=== PATIENT | male | born 1970 | race Caucasian/White ===

== ENCOUNTER 2017-11-04 15:19 | Emergency (ER) | payer BC ==
[2017-11-04 16:31] LABS: BASOPHILS 0.2 % (0-2); EOSINOPHILS 0.2 % (0-7); HEMATOCRIT 47.8 % (42.0-54.0); HEMOGLOBIN 16.3 g/dL (13.5-17.5); IMMATURE GRANULOCYTES 0.2 % (0-5); MCH 29.2 pg (26.0-34.0); MCHC 34.1 g/dL (31.0-37.0); MCV 85.7 fL (80.0-100.0); MEAN PLATELET VOLUME 8.8 fL (7.4-10.4); MONOCYTES 6.8 % (2-11); NEUTROPHILS 77.6 % (40-80); PLATELET COUNT 178 10x3/uL (130-400); RBC 5.58 10x6/uL (4.20-6.10); RDW 13.4 % (11.5-14.5); WBC 12.7 10x3/uL (4.8-10.8)
[2017-11-04 16:46] LABS: ALBUMIN 3.9 g/dL (3.4-5.0); BILIRUBIN - TOTAL 0.97 mg/dL (0.2-1.3); CALCIUM 8.9 mg/dL (8.5-10.1); CARBON DIOXIDE 29.5 mmol/L (21.0-32.0); CREATININE - SERUM 1.2 mg/dL (0.6-1.3); POTASSIUM - SERUM 3.5 mmol/L (3.5-5.1); PROTEIN - SERUM 6.8 g/dL (6.4-8.2)
== END 2017-11-04 18:22 | disposition home or self-care (01) ==
LOC: D.ER 15:19
PROVIDERS: Emergency Medicine
DX: R10.9 Unspecified abdominal pain (principal); R51 Headache; K21.9 Gastro-esophageal reflux disease without esophagitis; I10 Essential (primary) hypertension

== ENCOUNTER 2018-01-20 08:18 | Inpatient (IN) | payer BC ==
[~2018-01-20] VITALS: Ht 182.9 cm; Wt 111.1 kg
[2018-01-20 08:53] LABS: BASOPHILS 0.3 % (0-2); EOSINOPHILS 2.1 % (0-7); HEMATOCRIT 51.6 % (42.0-54.0); HEMOGLOBIN 17.3 g/dL (13.5-17.5); IMMATURE GRANULOCYTES 0.3 % (0-5); LYMPHOCYTES 12.7 % (15-50); MCH 27.6 pg (26.0-34.0); MCHC 33.5 g/dL (31.0-37.0); MCV 82.3 fL (80.0-100.0); MEAN PLATELET VOLUME 8.8 fL (7.4-10.4); MONOCYTES 6.4 % (2-11); NEUTROPHILS 78.2 % (40-80); PLATELET COUNT 191 10x3/uL (130-400); RBC 6.27 10x6/uL (4.20-6.10); RDW 16.2 % (11.5-14.5); WBC 9.9 10x3/uL (4.8-10.8)
[2018-01-20 09:05] LABS: ANION GAP 16.1 mmol/L (8-16); BILIRUBIN - TOTAL 0.7 mg/dL (0.2-1.3); CALCIUM 9.4 mg/dL (8.5-10.1); CARBON DIOXIDE 25.9 mmol/L (21.0-32.0); CREATININE - SERUM 1.5 mg/dL (0.6-1.3); PROTEIN - SERUM 7.8 g/dL (6.4-8.2)
[2018-01-20 10:33] LABS: APPEARANCE CLEAR (CLEAR); BILIRUBIN NEGATIVE (NEGATIVE); COLOR YELLOW (YELLOW); EPITHELIAL CELLS OCC /hpf (0-5); GLUCOSE NEGATIVE (NEGATIVE); KETONE NEGATIVE (NEGATIVE); NITRITE NEGATIVE (NEGATIVE); PROTEIN TRACE mg/dL (NEGATIVE); UROBILINOGEN NORMAL (NORMAL); WHITE CELLS - URINE OCC /hpf (0-5)
[2018-01-20 10:34] LABS: BACTERIA FEW /hpf (NONE SEEN); MUCUS >1+ /lpf (NONE SEEN)
[2018-01-20 10:35] LABS: HYALINE CAST OCC /lpf (NONE SEEN)
[2018-01-20 10:39] LABS: YEAST <1+ /hpf (NONE SEEN)
[2018-01-20] MEDS ORDERED: ZESTRIL40 MG PO (18:26)
[2018-01-20 20:00] VITALS: BP 156/87
[2018-01-21] VITALS (7 sets, daily range): BP systolic 126–167; BP diastolic 67–96; Ht 182.9 cm; Wt 111.1 kg
[2018-01-21 06:15] LABS: BASOPHILS 0.1 % (0-2); EOSINOPHILS 0.3 % (0-7); HEMATOCRIT 51.4 % (42.0-54.0); IMMATURE GRANULOCYTES 0.2 % (0-5); LYMPHOCYTES 4.4 % (15-50); MCH 27.6 pg (26.0-34.0); MCHC 33.1 g/dL (31.0-37.0); MCV 83.3 fL (80.0-100.0); MEAN PLATELET VOLUME 8.9 fL (7.4-10.4); MONOCYTES 5.7 % (2-11); NEUTROPHILS 89.3 % (40-80); PLATELET COUNT 166 10x3/uL (130-400); RBC 6.17 10x6/uL (4.20-6.10); RDW 16.8 % (11.5-14.5)
[2018-01-21 06:16] LABS: WBC 13.7 10x3/uL (4.8-10.8)
[2018-01-21 06:26] LABS: ALBUMIN 3.3 g/dL (3.4-5.0); ANION GAP 14.9 mmol/L (8-16); BILIRUBIN - TOTAL 1.5 mg/dL (0.2-1.3); CALCIUM 8.9 mg/dL (8.5-10.1); CARBON DIOXIDE 23.7 mmol/L (21.0-32.0); CREATININE - SERUM 1.3 mg/dL (0.6-1.3); POTASSIUM - SERUM 4.6 mmol/L (3.5-5.1); PROTEIN - SERUM 7.1 g/dL (6.4-8.2)
[2018-01-22] VITALS (7 sets, daily range): BP systolic 112–143; BP diastolic 55–98
[2018-01-22 06:30] LABS: BASOPHILS 0.1 % (0-2); EOSINOPHILS 1.3 % (0-7); HEMATOCRIT 43.5 % (42.0-54.0); HEMOGLOBIN 14.4 g/dL (13.5-17.5); IMMATURE GRANULOCYTES 0.3 % (0-5); LYMPHOCYTES 4.8 % (15-50); MCH 27.7 pg (26.0-34.0); MCHC 33.1 g/dL (31.0-37.0); MCV 83.8 fL (80.0-100.0); MEAN PLATELET VOLUME 8.8 fL (7.4-10.4); MONOCYTES 6.3 % (2-11); NEUTROPHILS 87.2 % (40-80); RBC 5.19 10x6/uL (4.20-6.10); RDW 17.1 % (11.5-14.5); WBC 12.8 10x3/uL (4.8-10.8)
[2018-01-22 06:32] LABS: PLATELET COUNT 128 10x3/uL (130-400)
[2018-01-22 06:45] LABS: ALBUMIN 2.7 g/dL (3.4-5.0); BILIRUBIN - TOTAL 2.11 mg/dL (0.2-1.3); CALCIUM 8.2 mg/dL (8.5-10.1); CREATININE - SERUM 1.2 mg/dL (0.6-1.3); POTASSIUM - SERUM 4.1 mmol/L (3.5-5.1); PROTEIN - SERUM 6.4 g/dL (6.4-8.2)
[2018-01-22 07:35] LABS: CARBON DIOXIDE 30.1 mmol/L (21.0-32.0)
[2018-01-23 04:00] VITALS: BP 120/61
[2018-01-23 05:18] LABS: BASOPHILS 0.1 % (0-2); HEMATOCRIT 39.8 % (42.0-54.0); IMMATURE GRANULOCYTES 0.3 % (0-5); LYMPHOCYTES 4.5 % (15-50); MCH 27.4 pg (26.0-34.0); MCHC 32.7 g/dL (31.0-37.0); MCV 83.8 fL (80.0-100.0); MEAN PLATELET VOLUME 8.9 fL (7.4-10.4); MONOCYTES 8.1 % (2-11); PLATELET COUNT 145 10x3/uL (130-400); RBC 4.75 10x6/uL (4.20-6.10); WBC 11.1 10x3/uL (4.8-10.8)
[2018-01-23 05:48] LABS: ALBUMIN 2.3 g/dL (3.4-5.0); ALKALINE PHOSPHATASE 62 U/L (46-116); ALT (SGPT) 26 U/L (10-68); BILIRUBIN - TOTAL 1.13 mg/dL (0.2-1.3); CALC OSMOLALITY 262 mosm/kg (275-300); CALCIUM 7.8 mg/dL (8.5-10.1); CARBON DIOXIDE 27.7 mmol/L (21.0-32.0); CHLORIDE - SERUM 97 mmol/L (98-107); CREATININE - SERUM 1.1 mg/dL (0.6-1.3); GLUCOSE 81 mg/dL (74-106); LIPASE 987 U/L (73-393); POTASSIUM - SERUM 3.8 mmol/L (3.5-5.1); SODIUM 132 mmol/L (136-145); UREA NITROGEN 10 mg/dL (7-18); eGFR NON AFRICAN AMERICAN 75 mL/min (90-120)
[2018-01-23 05:54] LABS: AMYLASE - SERUM 166 U/L (25-115)
[2018-01-23 09:07] VITALS: BP 140/78
[2018-01-23 12:36] VITALS: BP 140/83
[2018-01-23 16:27] VITALS: BP 129/85
[2018-01-23 21:47] VITALS: BP 128/73
[2018-01-24 02:19] VITALS: BP 134/81
[2018-01-24 04:54] LABS: BASOPHILS 0.2 % (0-2); HEMATOCRIT 36.9 % (42.0-54.0); HEMOGLOBIN 12.3 g/dL (13.5-17.5); IMMATURE GRANULOCYTES 0.2 % (0-5); LYMPHOCYTES 7.4 % (15-50); MCH 27.8 pg (26.0-34.0); MCHC 33.3 g/dL (31.0-37.0); MCV 83.3 fL (80.0-100.0); MEAN PLATELET VOLUME 8.9 fL (7.4-10.4); MONOCYTES 10.6 % (2-11); NEUTROPHILS 76.6 % (40-80); PLATELET COUNT 153 10x3/uL (130-400); RBC 4.43 10x6/uL (4.20-6.10); RDW 16.8 % (11.5-14.5); WBC 10.7 10x3/uL (4.8-10.8)
[2018-01-24 05:20] LABS: ALBUMIN 2.2 g/dL (3.4-5.0); ALKALINE PHOSPHATASE 89 U/L (46-116); ALT (SGPT) 24 U/L (10-68); CALC OSMOLALITY 265 mosm/kg (275-300); CALCIUM 8.1 mg/dL (8.5-10.1); CARBON DIOXIDE 29.3 mmol/L (21.0-32.0); CHLORIDE - SERUM 98 mmol/L (98-107); CREATININE - SERUM 1.1 mg/dL (0.6-1.3); GLUCOSE 85 mg/dL (74-106); LIPASE 713 U/L (73-393); POTASSIUM - SERUM 3.6 mmol/L (3.5-5.1); PROTEIN - SERUM 5.9 g/dL (6.4-8.2); SODIUM 134 mmol/L (136-145); UREA NITROGEN 11 mg/dL (7-18); eGFR NON AFRICAN AMERICAN 75 mL/min (90-120)
[2018-01-24 05:23] LABS: AMYLASE - SERUM 101 U/L (25-115)
[2018-01-24 06:04] VITALS: BP 117/75
[2018-01-24 07:05] VITALS: BP 142/95
[2018-01-24 11:02] VITALS: BP 150/88
[2018-01-24 15:00] VITALS: BP 127/80
[2018-01-24 20:00] VITALS: BP 140/97
[2018-01-25 00:46] VITALS: BP 145/90
[2018-01-25 05:19] VITALS: BP 119/89
[2018-01-25 05:37] LABS: BASOPHILS 0.2 % (0-2); EOSINOPHILS 6.1 % (0-7); IMMATURE GRANULOCYTES 0.3 % (0-5); LYMPHOCYTES 8.6 % (15-50); MCH 26.9 pg (26.0-34.0); MCHC 32.4 g/dL (31.0-37.0); MEAN PLATELET VOLUME 8.9 fL (7.4-10.4); MONOCYTES 10.5 % (2-11); NEUTROPHILS 74.3 % (40-80); RBC 4.46 10x6/uL (4.20-6.10); RDW 16.9 % (11.5-14.5); WBC 10.3 10x3/uL (4.8-10.8)
[2018-01-25 05:44] LABS: PLATELET COUNT 186 10x3/uL (130-400)
[2018-01-25 05:49] LABS: ALBUMIN 2.2 g/dL (3.4-5.0); ALKALINE PHOSPHATASE 87 U/L (46-116); ALT (SGPT) 23 U/L (10-68); AMYLASE - SERUM 90 U/L (25-115); CALC OSMOLALITY 277 mosm/kg (275-300); CALCIUM 7.9 mg/dL (8.5-10.1); CARBON DIOXIDE 30.1 mmol/L (21.0-32.0); CHLORIDE - SERUM 101 mmol/L (98-107); GLUCOSE 91 mg/dL (74-106); LIPASE 573 U/L (73-393); POTASSIUM - SERUM 3.7 mmol/L (3.5-5.1); PROTEIN - SERUM 5.2 g/dL (6.4-8.2); SODIUM 140 mmol/L (136-145); UREA NITROGEN 11 mg/dL (7-18); eGFR NON AFRICAN AMERICAN 84 mL/min (90-120)
[2018-01-25 08:07] VITALS: BP 146/65
[2018-01-25 11:57] VITALS: BP 136/72
[2018-01-25] MEDS ORDERED: COLACE100 MG PO (12:21)
[2018-01-25] MEDS ORDERED: VITAMIN B-1100 M1 PO (12:21)
[2018-01-25] MEDS ORDERED: FOLIC ACID1 MG PO (12:22)
[2018-01-25] MEDS ORDERED: PERCOCET 10/3251 TA1 PO (12:25)
[2018-01-25] MEDS ORDERED: Pancrease 5000,17,00 PO (12:25)
[2018-01-25] MEDS ORDERED: FLAGYL500 MG PO (13:15)
[2018-01-25] MEDS ORDERED: LEVAQUIN750 MG PO (13:15)
[2018-01-25] MEDS ORDERED: ATIVAN0.5 MG PO (13:15)
== END 2018-01-25 14:15 | disposition home or self-care (01) | DRG 439 ==
LOC: D.ER 08:18 → D.EDHOLD 14:27 → D.MS 14:27
PROVIDERS: Family Medicine; Family Medicine Adult Medicine
DX: K85.20 Alcohol induced acute pancreatitis without necrosis or infection (principal); N17.9 Acute kidney failure, unspecified; K21.9 Gastro-esophageal reflux disease without esophagitis; E86.0 Dehydration; K59.03 Drug induced constipation; T40.2X5A Adverse effect of other opioids, initial encounter

== ENCOUNTER 2018-07-19 23:27 | Inpatient (IN) | payer MEDICAID ==
[~2018-07-19] VITALS: Ht 182.9 cm; Wt 111.4 kg
[~2018-07-19 23:27] MED LIST: ATIVAN0.5 MG PO; COLACE100 MG PO; FLAGYL500 MG PO; FOLIC ACID1 MG PO; LEVAQUIN750 MG PO; PERCOCET 10/3251 TA1 PO; Pancrease 5000,17,00 PO; VITAMIN B-1100 M1 PO; ZESTRIL40 MG PO
[2018-07-20] VITALS (12 sets, daily range): BP systolic 140–188; BP diastolic 71–110; Ht 182.9 cm; Wt 111.4 kg
[2018-07-20 00:05] LABS: BASOPHILS 0.3 % (0-2); EOSINOPHILS 2.1 % (0-7); HEMOGLOBIN 17.2 g/dL (13.5-17.5); IMMATURE GRANULOCYTES 0.4 % (0-5); LYMPHOCYTES 14.3 % (15-50); MCH 30.3 pg (26.0-34.0); MCHC 35.8 g/dL (31.0-37.0); MCV 84.7 fL (80.0-100.0); MEAN PLATELET VOLUME 8.7 fL (7.4-10.4); MONOCYTES 5.5 % (2-11); NEUTROPHILS 77.4 % (40-80); RBC 5.67 10x6/uL (4.20-6.10); RDW 14.4 % (11.5-14.5); WBC 14.2 10x3/uL (4.8-10.8)
[2018-07-20 00:08] LABS: PLATELET COUNT 142 10x3/uL (130-400)
[2018-07-20 00:23] LABS: ALBUMIN 3.7 g/dL (3.4-5.0); ANION GAP 18.3 mmol/L (8-16); BILIRUBIN - TOTAL 0.59 mg/dL (0.2-1.3); CALCIUM 8.4 mg/dL (8.5-10.1); CARBON DIOXIDE 24.9 mmol/L (21.0-32.0); CREATININE - SERUM 1.5 mg/dL (0.6-1.3); POTASSIUM - SERUM 3.2 mmol/L (3.5-5.1); PROTEIN - SERUM 7.2 g/dL (6.4-8.2)
[2018-07-20 04:26] LABS: APPEARANCE CLEAR (CLEAR); COLOR YELLOW (YELLOW); GLUCOSE NEGATIVE (NEGATIVE); KETONE NEGATIVE (NEGATIVE); NITRITE NEGATIVE (NEGATIVE); PROTEIN TRACE mg/dL (NEGATIVE); SPECIFIC GRAVITY 1.015 (1.005-1.020); UROBILINOGEN NORMAL (NORMAL)
[2018-07-20 04:27] LABS: BILIRUBIN NEGATIVE (NEGATIVE); WHITE CELLS - URINE NSEEN /hpf (0-5)
[2018-07-20 07:04] LABS: BASOPHILS 0.1 % (0-2); EOSINOPHILS 0 % (0-7); HEMATOCRIT 51.8 % (42.0-54.0); HEMOGLOBIN 18.5 g/dL (13.5-17.5); IMMATURE GRANULOCYTES 0.2 % (0-5); LYMPHOCYTES 4.4 % (15-50); MCH 30.3 pg (26.0-34.0); MCHC 35.7 g/dL (31.0-37.0); MCV 84.9 fL (80.0-100.0); MONOCYTES 4.5 % (2-11); NEUTROPHILS 90.8 % (40-80); PLATELET COUNT 138 10x3/uL (130-400); RDW 14.7 % (11.5-14.5); WBC 12.6 10x3/uL (4.8-10.8)
[2018-07-20 07:25] LABS: APTT 21.7 SECONDS (22.8-39.4); INR 0.9 (0.85-1.17); PROTIME 11.8 SECONDS (11.6-15.0)
[2018-07-20 07:31] LABS: ALBUMIN 3.6 g/dL (3.4-5.0); ANION GAP 17.2 mmol/L (8-16); BILIRUBIN - TOTAL 0.92 mg/dL (0.2-1.3); CALCIUM 8.3 mg/dL (8.5-10.1); CARBON DIOXIDE 24.9 mmol/L (21.0-32.0); CREATININE - SERUM 1.3 mg/dL (0.6-1.3); MAGNESIUM - SERUM 1.8 mg/dL (1.8-2.4); PROTEIN - SERUM 7.1 g/dL (6.4-8.2)
[2018-07-20 07:51] LABS: POTASSIUM - SERUM 4.1 mmol/L (3.5-5.1)
[2018-07-21 06:18] VITALS: BP 147/102
[2018-07-21 06:40] LABS: ALBUMIN 2.7 g/dL (3.4-5.0); ANION GAP 10.4 mmol/L (8-16); CALCIUM 8.3 mg/dL (8.5-10.1); CARBON DIOXIDE 30.6 mmol/L (21.0-32.0); CREATININE - SERUM 1.3 mg/dL (0.6-1.3); PROTEIN - SERUM 6.3 g/dL (6.4-8.2)
[2018-07-21 07:54] LABS: BASOPHILS 0.1 % (0-2); EOSINOPHILS 0.5 % (0-7); HEMATOCRIT 52.1 % (42.0-54.0); HEMOGLOBIN 18.1 g/dL (13.5-17.5); IMMATURE GRANULOCYTES 0.3 % (0-5); LYMPHOCYTES 6.9 % (15-50); MCH 30.3 pg (26.0-34.0); MCHC 34.7 g/dL (31.0-37.0); MEAN PLATELET VOLUME 9.3 fL (7.4-10.4); MONOCYTES 5.1 % (2-11); NEUTROPHILS 87.1 % (40-80); PLATELET COUNT 139 10x3/uL (130-400); RBC 5.98 10x6/uL (4.20-6.10); RDW 15.3 % (11.5-14.5); WBC 11.1 10x3/uL (4.8-10.8)
[2018-07-21 07:55] LABS: MCV 87.1 fL (80.0-100.0)
[2018-07-21 08:05] VITALS: BP 159/105
[2018-07-21 13:21] VITALS: BP 172/74
[2018-07-21 20:00] VITALS: BP 131/72
[2018-07-22 05:00] VITALS: BP 149/93
[2018-07-22 06:36] LABS: BASOPHILS 0.2 % (0-2); EOSINOPHILS 1.9 % (0-7); HEMATOCRIT 43.9 % (42.0-54.0); HEMOGLOBIN 14.9 g/dL (13.5-17.5); IMMATURE GRANULOCYTES 0.2 % (0-5); LYMPHOCYTES 9.6 % (15-50); MCH 29.7 pg (26.0-34.0); MCHC 33.9 g/dL (31.0-37.0); MCV 87.6 fL (80.0-100.0); MEAN PLATELET VOLUME 9.4 fL (7.4-10.4); MONOCYTES 6.7 % (2-11); NEUTROPHILS 81.4 % (40-80); PLATELET COUNT 125 10x3/uL (130-400); RBC 5.01 10x6/uL (4.20-6.10); RDW 15.4 % (11.5-14.5); WBC 10.8 10x3/uL (4.8-10.8)
[2018-07-22 07:17] LABS: ALBUMIN 2.2 g/dL (3.4-5.0); ANION GAP 11.4 mmol/L (8-16); BILIRUBIN - TOTAL 0.88 mg/dL (0.2-1.3); CALCIUM 7.8 mg/dL (8.5-10.1); CARBON DIOXIDE 28.1 mmol/L (21.0-32.0); CREATININE - SERUM 1.2 mg/dL (0.6-1.3); POTASSIUM - SERUM 3.5 mmol/L (3.5-5.1); PROTEIN - SERUM 5.6 g/dL (6.4-8.2)
[2018-07-22 08:40] VITALS: BP 126/92
[2018-07-22] MEDS ORDERED: NORCO 7.5/325 T1 TA1 PO (09:30)
[2018-07-22] MEDS ORDERED: NORCO-7.5 PO (09:30)
[2018-07-22 20:00] VITALS: BP 124/82
[2018-07-23 04:30] VITALS: BP 116/76
[2018-07-23 06:37] LABS: BASOPHILS 0.1 % (0-2); EOSINOPHILS 1.2 % (0-7); HEMATOCRIT 38.5 % (42.0-54.0); HEMOGLOBIN 13.2 g/dL (13.5-17.5); IMMATURE GRANULOCYTES 0.3 % (0-5); LYMPHOCYTES 7.5 % (15-50); MCHC 34.3 g/dL (31.0-37.0); MCV 87.5 fL (80.0-100.0); NEUTROPHILS 81.9 % (40-80); PLATELET COUNT 125 10x3/uL (130-400); RDW 14.9 % (11.5-14.5); WBC 9.5 10x3/uL (4.8-10.8)
[2018-07-23 07:13] LABS: ALBUMIN 2.1 g/dL (3.4-5.0); ALKALINE PHOSPHATASE 46 U/L (46-116); ALT (SGPT) 18 U/L (10-68); AMYLASE - SERUM 98 U/L (25-115); BILIRUBIN - TOTAL 0.94 mg/dL (0.2-1.3); CALC OSMOLALITY 270 mosm/kg (275-300); CALCIUM 8.1 mg/dL (8.5-10.1); CARBON DIOXIDE 29.3 mmol/L (21.0-32.0); CHLORIDE - SERUM 100 mmol/L (98-107); GLUCOSE 98 mg/dL (74-106); LIPASE 597 U/L (73-393); POTASSIUM - SERUM 3.7 mmol/L (3.5-5.1); PROTEIN - SERUM 5.8 g/dL (6.4-8.2); SODIUM 136 mmol/L (136-145); UREA NITROGEN 10 mg/dL (7-18); eGFR NON AFRICAN AMERICAN 84 mL/min (90-120)
[2018-07-23 09:58] VITALS: BP 152/93
[2018-07-23 12:44] VITALS: BP 139/93
[2018-07-23 17:43] VITALS: BP 144/88
[2018-07-23 20:00] VITALS: BP 131/84
[2018-07-24 04:01] VITALS: BP 131/80
[2018-07-24 05:35] LABS: BASOPHILS 0.1 % (0-2); EOSINOPHILS 1.8 % (0-7); HEMATOCRIT 37.1 % (42.0-54.0); HEMOGLOBIN 12.7 g/dL (13.5-17.5); IMMATURE GRANULOCYTES 0.2 % (0-5); LYMPHOCYTES 8.1 % (15-50); MCH 29.7 pg (26.0-34.0); MCHC 34.2 g/dL (31.0-37.0); MCV 86.9 fL (80.0-100.0); MEAN PLATELET VOLUME 9.3 fL (7.4-10.4); MONOCYTES 8.6 % (2-11); NEUTROPHILS 81.2 % (40-80); PLATELET COUNT 143 10x3/uL (130-400); RBC 4.27 10x6/uL (4.20-6.10); RDW 14.8 % (11.5-14.5); WBC 9.8 10x3/uL (4.8-10.8)
[2018-07-24 06:13] LABS: ALBUMIN 2.1 g/dL (3.4-5.0); ALKALINE PHOSPHATASE 72 U/L (46-116); AMYLASE - SERUM 80 U/L (25-115); BILIRUBIN - TOTAL 0.83 mg/dL (0.2-1.3); CALC OSMOLALITY 267 mosm/kg (275-300); CALCIUM 8.4 mg/dL (8.5-10.1); CARBON DIOXIDE 31.6 mmol/L (21.0-32.0); CHLORIDE - SERUM 98 mmol/L (98-107); CREATININE - SERUM 1.1 mg/dL (0.6-1.3); GLUCOSE 103 mg/dL (74-106); LIPASE 519 U/L (73-393); POTASSIUM - SERUM 3.6 mmol/L (3.5-5.1); PROTEIN - SERUM 6.2 g/dL (6.4-8.2); SODIUM 134 mmol/L (136-145); UREA NITROGEN 12 mg/dL (7-18); eGFR NON AFRICAN AMERICAN 75 mL/min (90-120)
[2018-07-24 06:41] LABS: ALT (SGPT) 24 U/L (10-68)
[2018-07-24 08:22] VITALS: BP 147/85
[2018-07-24] MEDS ORDERED: MUCINEX600 MG PO (09:21)
[2018-07-24] MEDS ORDERED: K-TAB10 MEQ PO (09:21)
[2018-07-24] MEDS ORDERED: LASIX40 MG PO (09:21)
[2018-07-24] MEDS ORDERED: TESSALON PERLE100 MG PO (09:21)
[2018-07-24] MEDS ORDERED: FLORAJEN3 CAPS460 MG PO (09:21)
[2018-07-24] MEDS ORDERED: LEVAQUIN750 MG PO (09:21)
[2018-07-24] MEDS ORDERED: NORCO 7.5/325 T1 TA1 PO (11:48)
== END 2018-07-24 12:10 | disposition home or self-care (01) | DRG 438 ==
LOC: D.ER 23:27 → D.MS 07-20 02:55 → D.EDHOLD 07-20 02:55 → D.MS 07-20 03:25
PROVIDERS: Family Medicine; Internal Medicine Nephrology
DX: K85.90 Acute pancreatitis without necrosis or infection, unspecified (principal); J18.9 Pneumonia, unspecified organism; J90 Pleural effusion, not elsewhere classified; N17.9 Acute kidney failure, unspecified; I10 Essential (primary) hypertension; E86.0 Dehydration

== ENCOUNTER → 2019-06-17 11:51 | Outpatient (CLI) | payer MEDICAID ==
[2018-07-20 04:16] VITALS: BMI 33.3
[~2019-06-17 11:51] MED LIST changes: +FLORAJEN3 CAPS460 MG PO; +K-TAB10 MEQ PO; +LASIX40 MG PO; +MUCINEX600 MG PO; +NORCO 7.5/325 T1 TA1 PO; +NORCO-7.5 PO; +TESSALON PERLE100 MG PO
[2019-06-17 12:37] LABS: AMYLASE - SERUM 44 U/L (25-115); CHOL - HDL RATIO 4.3 ratio (2.3-4.9); CHOLESTEROL, TOTAL 146 mg/dL (0-200); HDL CHOLESTEROL 34 mg/dL (32-96); LIPASE 196 U/L (73-393); TRIGLYCERIDE 601 mg/dL (30-200)
== END | disposition home or self-care (01) ==
LOC: D.LAB 11:51
PROVIDERS: ATTEND Internal Medicine Gastroenterology
DX: K86.1 Other chronic pancreatitis (principal); R10.11 Right upper quadrant pain; R12 Heartburn; R11.2 Nausea with vomiting, unspecified; K63.89 Other specified diseases of intestine

== ENCOUNTER → 2019-07-08 08:40 | Outpatient (CLI) | payer MEDICAID ==
[2018-07-20 04:16] VITALS: BMI 33.3
[2019-07-10 06:09] LABS: ENDOMYSIAL ANTIBODY IGA Positive (Negative)
[2019-07-12 14:09] LABS: ANTIGLIADIN IGA 58 units (0-19); ANTIGLIADIN IGG 23 units (0-19)
== END | disposition home or self-care (01) ==
LOC: D.NM 07-01 08:00
PROVIDERS: ATTEND Internal Medicine Gastroenterology
DX: R10.11 Right upper quadrant pain (principal)